=== PATIENT | female | born 1990 | race Caucasian/White ===

== ENCOUNTER 2019-07-04 06:06 | Day surgery (SDC) | payer OTHER ==
[2019-07-03 10:16] VITALS: BMI 37.8
[2019-07-04 06:45] LABS: #Basophils 0.1 thou/uL (0.0-0.2); #Eosinphils 0.1 thou/uL (0.0-0.7); #Lymphocytes 2.1 thou/uL (1.20-3.40); #Monocytes 0.4 thou/uL (0.11-0.59); #Neutrophils 4.4 thou/uL (1.40-6.50); %Basophils 1.1 % (0.0-1.0); %Eosinophils 1.5 % (0.0-10.0); %Lymphocytes 29.6 % (21.0-51.0); %Monocytes 6.2 % (0.0-10.0); %Neutrophils 61.6 % (42.0-75.0); Mean Corpuscular HGB CONC 34.8 g/dL (32.0-36.0); Mean Corpuscular Hemoglobin 32.3 pg (27.0-31.0); Mean Corpuscular Volume 92.8 fL (78.0-98.0); Mean Platelet Volume 7.4 fL (7.4-10.4); Platelet Count 329 thou/uL (130-400); RBC Distribution Width 11.1 % (11.5-14.5); Red Blood Cell (RBC) Count 4.03 mill/uL (4.20-5.40); White Blood Cell (WBC) Count 7.1 thou/uL (4.8-10.8)
[2019-07-04] MEDS ORDERED: Midazolam HCl 2 mg/2 ml Vial ONE ×2 (06:45→07:20)
[2019-07-04] MEDS ORDERED: Propofol 500 MG/50 ML VIAL ONE (06:45)
[2019-07-04] MEDS ORDERED: Fentanyl 100 MCG/2 ML VIAL ONE (06:45)
[2019-07-04] MEDS ORDERED: Lidocaine 1% w/Epinephrine 1:100K 20 ML VIAL ONE (06:48)
[2019-07-04] MEDS ORDERED: Bupivacaine 0.25% HCL 30 ML VIAL ONE (06:48)
[2019-07-04 06:49] LABS: BHCG - Serum Negative (NEGATIVE); Pregs Control Background? CLEAR/WHITE (CLR/WHITE); Pregs Control Bar Appear? YES (CONTROL BAR)
[2019-07-04 07:06] LABS: ALT (SGPT) 24 U/L (8-55); AST (SGOT) 18 U/L (5-34); Alkaline Phosphatase 64 U/L (40-110); Anion Gap 11 mmol/L (10-20); BUN (Urea Nitrogen) 13 mg/dL (7.0-18.7); Bilirubin, Total 0.4 mg/dL (0.2-1.2); Calc. Creatinine Clearance 164 mL/min (70-130); Calcium 8.8 mg/dL (7.8-10.44); Carbon Dioxide 26 mmol/L (22-29); Chloride 107 mmol/L (98-107); Estimated GFR-MDRD 85; Globulin 2.7 g/dL (2.4-3.5); Glucose 122 mg/dL (70-105); Potassium 4.2 mmol/L (3.5-5.1); Protein, Total 6.7 g/dL (6.0-8.3); Sodium 140 mmol/L (136-145)
--- NOTE | 2019-07-04 09:01 | RAD ---
CHEST 1 VIEW: INDICATION: History of MediPort placement. COMPARISON: Prior 2-view chest radiograph dated 04/26/2018. FINDINGS: There is a new right IJ chest wall port in place. No pneumothorax is evident. Lungs are clear. Hea rt size is normal. No acute osseous abnormality is demonstrated. IMPRESSION: New right internal jugular chest wall port. No right-sided pneumothorax. No acute cardiopulmonary a bnormality. POS: BH
--- NOTE | 2019-07-04 09:07 | OP ---
DATE OF PROCEDURE: 07/04/2019 PREOPERATIVE DIAGNOSES: Poor intravenous access, Crohn disease. PROCEDURE PERFORMED: MediPort placement. INDICATIONS: The patient is a 29-year-old female, requires bimonthly infusion of Remicade. They have lost IV access. This is for Crohn disease, and she needs it to prevent relapse. FINDINGS: Right IJ placement. DESCRIPTION OF PROCEDURE: After informed consent was obtained, the patient was taken to the operating room, given total IV anesthesia, placed in the supine position. Her neck and chest were prepped and draped in usual fashion. Then, the patient was placed in Trendelenburg position. Local anesthesia infiltrated subcutaneously and deep. An introducer needle was inserted into the right internal jugular vein with good backflow of venous blood. J-wire threaded easily. Fluoroscopy was used showing good placement in the superior vena cava. The skin and subcutaneous tissue anesthetized with 0.5% Marcaine. Transverse chest wall incision was performed. Subcu was divided sharply. A pocket was created sharply on the pectoralis fascia utilizing electrocautery. The tunneling device was then used to tunnel between the 2 incisions. The catheter brought through the tunnel and connected to the MediPort. The MediPort was then secured to the chest wall with interrupted 2-0 Prolene suture. The system was accessed with a Snyder needle and flushed with heparinized saline. The catheter was cut and the Peel-Away introducer inserted over the wire. The wire was removed. The catheter inserted through the Peel-Away introducer and the Peel-Away introducer removed. Fluoroscopy again used, showed good placement in the superior vena cava. The system accessed with the Snyder needle. Good backflow of venous blood, flushed easily with heparinized saline. Hemostasis was assured. Subcu reapproximated with interrupted 3-0 Vicryl. Skin closed with running subcuticular 4-0 Rapide. Dermabond applied. The patient tolerated the procedure well, transferred to Recovery in good condition. Sponge and needle counts verified correct x2. Job ID: [id number]
== END 2019-07-04 09:12 | disposition home or self-care (01) ==
LOC: SDC 06:06
PROVIDERS: ATTEND Surgery
PROC: 02HV33Z Insertion of Infusion Device into Superior Vena Cava, Percutaneous Approach (ICD-10-PCS; principal; 2019-07-04)
DX: K50.812 Crohn's disease of both small and large intestine with intestinal obstruction (principal); F41.9 Anxiety disorder, unspecified; G89.29 Other chronic pain; J45.909 Unspecified asthma, uncomplicated; M06.9 Rheumatoid arthritis, unspecified; F32.9 Major depressive disorder, single episode, unspecified; Z87.891 Personal history of nicotine dependence; Z87.898 Personal history of other specified conditions; Z79.899 Other long term (current) drug therapy; Z88.2 Allergy status to sulfonamides; Z91.040 Latex allergy status
CPT/HCPCS: 36415; 71045; 80053; 84703; 85025; C1788; J0690; J1642; J2250; J2704; J3010; S0020